=== PATIENT | male | born 1990 | race Two or more races ===

== ENCOUNTER 2019-12-12 10:17 | Outpatient (CLI) | payer OTHER ==
[2019-12-12] MEDS ORDERED: CIPRODEX OTIC7.5 ML OT (12:35)
== END 2019-12-12 13:00 | disposition home or self-care (01) ==
LOC: OFIC 805 10:17
DX: H92.02 Otalgia, left ear (principal); H93.8X2 Other specified disorders of left ear; H66.92 Otitis media, unspecified, left ear

== ENCOUNTER 2025-01-31 11:34 | Emergency (ER) | payer OTHER ==
[~2025-01-31] VITALS: Ht 162.6 cm; Wt 72.6 kg
[~2025-01-31 11:34] MED LIST: CIPRODEX OTIC7.5 ML OT
[2025-01-31] MEDS ORDERED: LEVOTHYROXINE25 MCG (12:56)
[2025-01-31 16:40] LABS: BASO % 0.3 % (0.1-1.2); EOS # 0.04 (0.04-0.54); EOS % 0.6 % (0.7-7.0); HEMATOCRIT 42.9 % (40.1-51.0); HEMOGLOBIN 14.7 g/dL (13.7-17.5); LYMPH # 1.46 (1.18-3.74); LYMPH % 22.7 % (19.3-53.1); MEAN CORPUSCULAR HEMOGLOBIN 28.9 pg (25.6-32.2); MONO # 0.39 (0.24-0.82); MONO % 6.1 % (4.7-12.5); NEUT # 4.52 (1.56-6.13); NEUT % 70.3 % (34.0-71.1); PLATELET COUNT 241 K/uL (163-369); RED BLOOD COUNT 5.08 M/uL (4.63-6.08); RED CELL DISTRIBUTION WIDTH 11.7 % (11.6-14.4)
[2025-01-31 17:01] LABS: ALBUMIN 4.4 gm/dL (3.4-5.0); BILIRUBIN TOTAL 0.63 mg/dL (0.3-1.2); CALCIUM 9.6 mg/dL (8.5-10.1); GFR 85.53; GLOBULINA 3.5 G/DL (2.4-3.5); POTASSIUM 3.89 mEq/L (3.5-5.1); TOTAL PROTEIN 7.9 gm/dL (6.4-8.2)
[2025-01-31 17:19] LABS: PH,URINE 5.5 (5.0-8.0); URINE APPEARANCE Clear; URINE BILIRRUBIN Negative (NEGATIVE); URINE BLOOD Negative; URINE COLOR Yellow; URINE GLUCOSE Negative (NEGATIVE); URINE KETONE Trace (NEGATIVE); URINE LEUKOCYTE Negative; URINE NITRATE Negative; URINE PROTEIN Negative (NEGATIVE); URINE UROBILINOGEN 0.2 E.U./dl
[2025-01-31 17:23] LABS: URINE BACTERIA 0 uL (0.0-1933); URINE RBC 0.7 uL (0.0-20.8); URINE WBC 0.3 uL (0.0-23.2)
[2025-01-31] MEDS ORDERED: DICLOFENAC POTA50 MG PO (19:11)
[2025-01-31] MEDS ORDERED: KETOROLAC TROMETHAMINE 60 MG VIAL IM ONE ×2 (19:12→19:30)
== END 2025-01-31 19:25 | disposition home or self-care (01) ==
LOC: ER 11:34
PROVIDERS: Preventive Medicine Public Health & General Preventive Medicine
DX: N43.2 Other hydrocele (principal); R10.9 Unspecified abdominal pain; N50.812 Left testicular pain; E03.8 Other specified hypothyroidism